=== PATIENT | male | born 1985 | race Caucasian/White ===

== ENCOUNTER 2021-12-19 19:19 | Outpatient (CLI) | payer SELFPAY | END 2021-12-19 19:20 | disposition home or self-care (01) | LOC: CSHMRI 19:19 | PROVIDERS: ATTEND Family Medicine | DX: R29.898 Other symptoms and signs involving the musculoskeletal system (principal); Q76.49 Other congenital malformations of spine, not associated with scoliosis; M51.27 Other intervertebral disc displacement, lumbosacral region; M47.817 Spondylosis without myelopathy or radiculopathy, lumbosacral region | CPT/HCPCS: 72148 ==